=== PATIENT | female | born 1950 | race Hispanic/Latino ===

== ENCOUNTER 2018-02-06 06:58 | Day surgery (SDC) | payer OTHER ==
[~2018-02-06] VITALS: Ht 124.5 cm; Wt 61.5 kg
[~2018-02-06 06:58] MED LIST: ATOR20TA65 PO; BENZ200C53 PO; CLOP75TA32 PO; OXYB5 PO; SERT100T12 PO; SODIUM CHLORIDE 0.9% 1000ML 1,000 ML IV ONE; THEO400T3 PO; TIZA4CAP8 PO
[2018-02-06 07:14] VITALS: BP 128/76
[2018-02-06] MEDS ORDERED: PROPOFOL 10 MG/ML 20ML VIAL IV ONE (07:58)
[2018-02-06 08:18] VITALS: BP 92/33
== END 2018-02-06 08:55 ==
LOC: ENDO 06:58 → DAH 06:58 → ENDO 08:55
PROVIDERS: ATTEND Internal Medicine Gastroenterology
DX: K63.5 Polyp of colon (principal); Z80.0 Family history of malignant neoplasm of digestive organs; J44.9 Chronic obstructive pulmonary disease, unspecified; I10 Essential (primary) hypertension; E78.5 Hyperlipidemia, unspecified; Z86.73 Personal history of transient ischemic attack (TIA), and cerebral infarction without residual deficits; M19.90 Unspecified osteoarthritis, unspecified site; Z79.899 Other long term (current) drug therapy; Z90.710 Acquired absence of both cervix and uterus
CPT/HCPCS: 45378; 93005; A4606; J2704; J7030

== ENCOUNTER 2021-01-25 08:44 | Emergency (ER) | payer OTHER ==
[~2021-01-25 08:44] MED LIST changes: +SERT-440 PO; -SERT100T12 PO; -SODIUM CHLORIDE 0.9% 1000ML 1,000 ML IV ONE
[2021-01-25] MEDS ORDERED: KETOROLAC TROMETHAMINE 15MG/ML ONE (09:14)
[2021-01-25] MEDS ORDERED: SODIUM CHLORIDE 0.9% 500ML 500 ML IV ONE (09:14)
[2021-01-25 09:20] LABS: BASOPHILS % (AUTO) 0.5 % (0.0-5.0); EOSINOPHILS % (AUTO) 2.6 % (0.0-8.0); HEMATOCRIT 40.1 % (36-48); LYMPHOCYTES % (AUTO) 28.9 % (21.0-51.0); MEAN CORPUSCULAR HEMOGLOBIN 27.9 pg (27.0-33.0); MEAN CORPUSCULAR HGB CONC 31.9 g/dL (32.0-36.0); MEAN CORPUSCULAR VOLUME 87.6 fL (79-99); NEUTROPHILS % (AUTO) 59.7 % (40.0-77.0); PLATELET COUNT (AUTO) 263 K/uL (130-400); RED BLOOD CELL COUNT(AUTO) 4.58 MIL/uL (4.00-5.50); RED CELL DISTRIBUTION WIDTH 14.3 % (11.0-15.5); WHITE BLOOD COUNT (AUTO) 7.3 K/uL (4.8-10.8)
[2021-01-25 09:25] LABS: CREATININE 0.7 mg/dL (0.5-1.5); POTASSIUM 4.3 mmol/L (3.5-5.1)
[2021-01-25 09:29] LABS: ALBUMIN 3.9 g/dL (3.5-5.0); BILIRUBIN,TOTAL 0.4 mg/dL (0.2-1.0); TOTAL PROTEIN, SERUM 7.8 g/dL (6.0-8.3)
[2021-01-25 09:30] LABS: APPEARANCE,URINE Clear (CLEAR); BILIRUBIN,URINE Negative (NEGATIVE); COLOR,URINE Yellow (YELLOW); GLUCOSE, URINE (UA) Negative (NEGATIVE); KETONES,URINE Negative (NEGATIVE); LEUKOCYTE ESTERASE ,URINE Small (NEGATIVE); NITRATE,URINE Negative (NEGATIVE); OCCULT BLOOD,URINE Negative (NEGATIVE); PROTEIN,URINE Negative (NEGATIVE); UROBILINOGEN,URINE 0.2 mg/dL (0.2-1.0)
[2021-01-25 09:41] LABS: BACTERIA,URINE Few /HPF (None Seen)
[2021-01-25 09:42] LABS: RBC,URINE None Seen /HPF (0-1)
[2021-01-25] MEDS ORDERED: CEFTRIAXONE SODIUM 1 GM ONE (10:07)
[2021-01-25] MEDS ORDERED: SODIUM CHLORIDE 0.9% 50 ML IV ONE (10:10)
== END 2021-01-25 13:20 | disposition home or self-care (01) ==
LOC: EDH 08:44
DX: N39.0 Urinary tract infection, site not specified (principal); E86.0 Dehydration; I10 Essential (primary) hypertension; Z88.6 Allergy status to analgesic agent; Z88.5 Allergy status to narcotic agent
CPT/HCPCS: 36415; 80053; 81001; 85025; 87088; 96361; 96365; 96366; 96375; 99284; J0696; J1885; J7040

== ENCOUNTER 2021-05-28 10:40 | Emergency (ER) | payer OTHER ==
[~2021-05-28] VITALS: Ht 149.9 cm; Wt 40.8 kg
[~2021-05-28 10:40] MED LIST changes: -BENZ200C53 PO; +DOCU-116 PO; +METO-391 PO; +[UNRECOGNIZED DRUG - OTHER] PO; +multivitamin PO
[2021-05-28 11:04] VITALS: BP 134/84
[2021-05-28 11:10] LABS: BASOPHILS % (AUTO) 0.7 % (0.0-5.0); EOSINOPHILS % (AUTO) 4.3 % (0.0-8.0); HEMATOCRIT 39.1 % (36-48); LYMPHOCYTES % (AUTO) 25.1 % (21.0-51.0); MEAN CORPUSCULAR HEMOGLOBIN 27.8 pg (27.0-33.0); MEAN CORPUSCULAR VOLUME 87.1 fL (79-99); MONOCYTES % (AUTO) 6.7 % (3.0-13.0); NEUTROPHILS % (AUTO) 62.9 % (40.0-77.0); PLATELET COUNT (AUTO) 265 K/uL (130-400); RED BLOOD CELL COUNT(AUTO) 4.49 MIL/uL (4.00-5.50); RED CELL DISTRIBUTION WIDTH 15.9 % (11.0-15.5); WHITE BLOOD COUNT (AUTO) 7.3 K/uL (4.8-10.8)
[2021-05-28 11:37] LABS: ALBUMIN 3.6 g/dL (3.5-5.0); BILIRUBIN,TOTAL 0.4 mg/dL (0.2-1.0); CREATININE 0.8 mg/dL (0.5-1.5); TOTAL PROTEIN, SERUM 7.3 g/dL (6.0-8.3)
[2021-05-28 12:02] LABS: POTASSIUM 3.3 mmol/L (3.5-5.1)
[2021-05-28 12:12] LABS: APPEARANCE,URINE Cloudy (CLEAR); BILIRUBIN,URINE Negative (NEGATIVE); COLOR,URINE Dark Yellow (YELLOW); GLUCOSE, URINE (UA) Negative (NEGATIVE); KETONES,URINE 15 mg/dL (NEGATIVE); LEUKOCYTE ESTERASE ,URINE Moderate (NEGATIVE); NITRATE,URINE Negative (NEGATIVE); OCCULT BLOOD,URINE Negative (NEGATIVE); PROTEIN,URINE POS 1+ mg/dL (NEGATIVE)
[2021-05-28 12:33] LABS: BACTERIA,URINE Rare /HPF (None Seen); MUCUS,URINE Few LPF (None Seen); RBC,URINE 0-1 /HPF (0-1); SQUAMOUS EPITHELIAL CELL,UR Rare /HPF (0-2)
[2021-05-28 12:34] LABS: CALCIUM OXALATE CRYSTALS,UR Few /LPF (None Seen)
[2021-05-28] MEDS ORDERED: CEPH500B PO (15:16)
[2021-05-28] MEDS ORDERED: CEPHALEXIN 500 MG CAPSULE ONE (15:39)
[2021-05-28 15:40] VITALS: BP 133/79
[2021-05-28] MEDS ORDERED: CEPHALEXIN 500 MG CAPSULE PO ONE (16:00)
== END 2021-05-28 16:13 | disposition home or self-care (01) ==
LOC: EDH 10:40
DX: N39.0 Urinary tract infection, site not specified (principal); G89.18 Other acute postprocedural pain; Z88.5 Allergy status to narcotic agent; Z88.6 Allergy status to analgesic agent; Z98.890 Other specified postprocedural states; Z79.899 Other long term (current) drug therapy
CPT/HCPCS: 36415; 74176; 80053; 81001; 85025; 87088

== ENCOUNTER 2021-08-16 13:11 | Emergency (ER) | payer OTHER ==
[~2021-08-16] VITALS: Ht 157.5 cm; Wt 51.7 kg
[~2021-08-16 13:11] MED LIST changes: +CEPH500B PO
[2021-08-16] MEDS ORDERED: ACETAMINOPHEN 500 MG TABLET PO STA (13:56)
[2021-08-16 15:47] VITALS: BP 140/79
== END 2021-08-16 15:52 | disposition home or self-care (01) ==
LOC: EDH 13:11
DX: S70.02XA Contusion of left hip, initial encounter (principal); I10 Essential (primary) hypertension; Z86.73 Personal history of transient ischemic attack (TIA), and cerebral infarction without residual deficits; Z79.899 Other long term (current) drug therapy; Z88.5 Allergy status to narcotic agent; Z88.6 Allergy status to analgesic agent; W06.XXXA Fall from bed, initial encounter; Y93.89 Activity, other specified; Y92.89 Other specified places as the place of occurrence of the external cause; Y99.8 Other external cause status
CPT/HCPCS: 73502